=== PATIENT | male | born 1990 | race Caucasian/White ===

== ENCOUNTER 2019-05-06 17:03 | Emergency (ER) | payer OTHER ==
[~2019-05-06] VITALS: Ht 188 cm; Wt 79.4 kg
[2019-05-06 18:42] VITALS: BP 119/89
[2019-05-06] MEDS ORDERED: FLUORESCEIN SOD 1 MG TEST STRIP RIGHTEYE ONE (19:00)
[2019-05-06] MEDS ORDERED: TETRACAINE HCL 0.5% OPTH(EYE) SOLN 4ML EACHEYE ONE (19:00)
== END 2019-05-06 20:09 | disposition home or self-care (01) ==
LOC: ER 17:03
DX: T15.01XA Foreign body in cornea, right eye, initial encounter (principal); W45.8XXA Other foreign body or object entering through skin, initial encounter; Y93.89 Activity, other specified; Y92.69 Other specified industrial and construction area as the place of occurrence of the external cause; Y99.8 Other external cause status
CPT/HCPCS: 65222